=== PATIENT | male | born 2005 | race Caucasian/White ===

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

== ENCOUNTER 2023-07-08 15:02 | Outpatient (AMB) | payer OTHER, SELFPAY ==
[2023-07-08 15:07] VITALS: BP 112/68; PULSE 89; O2SAT 97; BMI 36.8
--- NOTE | 2023-07-08 15:07 | A.OFFPC_ITS ---
Vital Signs 07/08/23 15:07 Height 5 ft 8 in Weight 242 lb BMI 36.8 BP 112/68 Blood Pressure Location Rt brachial Position Sitting Pulse 89 Pulse Source Pulse Oximeter Pulse Oximetry (%) 97 Oxygen Delivery Method Room Air Intake Visit Reasons: PE Intake Note: Pt is here today for his PE Allergies No Known Allergies Allergy (Verified 07/08/23 15:34) Medication List - Last Reconciled 07/08/23 by SUSHANT Truong fluticasone propionate 50 mcg/actuation 1 spray intranasal DAILY Tobacco use date assessed: 07/08/23 Dental Screening Dental Screen Date: 07/08/23 Did you have a dental visit in the last 12 months?: Yes Did you have a dental problem in the last 6 months where you did not have access to dental care?: No Was dental information given to patient?: Patient has dentist HPI HPI Comments History of Present Illness Details Patient is a 18-year-old male in today for physical exam. Patient due for Tdap next year 2024. Patient has a past medical history significant for: Autism, and seasonal allergies. Will draw fasting labs [facility] Medical History Autism Surgical History S/P tonsillectomy Family History Father Hypertension Social History Housing: House Alcohol intake: never Patient Tobacco Use Status: Never used Tobacco e-Cigarette/Vaping Use: Never Used service: No Current occupational status: student Current occupational exposures/hazards: No Cognitive needs: No Hearing needs: No Vision needs: Yes Questionnaire PHQ-9 Over the last 2 weeks, how often have you been bothered by any of the following problems? 1. Little interest or pleasure in doing things: not at all 2. Feeling down, depressed, or hopeless: not at all 3. Trouble falling or staying asleep, or sleeping too much: not at all 4. Feeling tired or having little energy: not at all 5. Poor appetite or overeating: not at all 6. Feeling bad about yourself - or that you are a failure or have let yourself or your family down: not at all 7. Trouble concentrating on things, such as reading the newspaper or watching television: not at all 8. Moving or speaking so slowly that other people could have noticed. Or the opposite - being so fidgety or restless that you have been moving around a lot more than usual: not at all 9. Thoughts that you would be better off or of hurting yourself in some way: not at all Total score: 0 Depression Screening Interpretation: Negative Depression Screening Done: Yes 66458 - PHQ-9 Billing: Yes Source: Developed by Drs. Selvin Minaya, Mee Jade, Pb Rodriguez and colleagues, with an educational ciara from [employer]. Thrive Questionnaire Date Thrive assessed: 07/08/23 I am a: Patient What is your living situation today?: I have a steady place to live Within the past 12 months, did the food you bought not last and you didn't have the money to get more?: Never true Within the past 12 months, did you worry whether your food would run out before you got money to buy more?: Never true Do you have trouble paying for medicines?: No Do you have trouble getting transportation to medical appointments?: No Do you have trouble paying your heating and electricity bill?: No Do you have trouble taking care of your child, family member or friend?: No Do you have trouble with day-to-day activities such as bathing, preparing meals, shopping, managing finances, etc.?: No Are you currently unemployed and looking for a job?: No Are you interested in more education?: No THRIVE Score: 0 AUDIT C Alcohol Use Questionnaire (AUDIT-C) 1. How often do you have a drink containing alcohol?: Never Total Score: 0 FRIDA-7 AMB Questionnaire FRIDA-7 Date FRIDA - 7 assessed: 07/08/23 Feeling nervous, anxious, or on edge: 0 = Not at all Not being able to stop or control worryin = Not at all Worrying too much about different things: 0 = Not at all Trouble relaxin = Not at all Being so restless that it is hard to sit still: 0 = Not at all Becoming easily annoyed or irritable: 0 = Not at all Feeling afraid as if something awful might happen: 0 = Not at all Total FRIDA-7 score (0-4 normal; 5-9 mild; 10-14 moderate; 15-21 severe): 0 Source: Developed by Drs. Selvin Minaya, Mee Jade, Pb Rodriguez and colleagues, with an educational ciara from [employer]. FRIDA-7 Assessment Billing FRIDA-7 Assessment Tool: FRIDA-7 Assessment 43254 Review of Systems Const All systems reviewed & are unremarkable except as noted in HPI and below Physical exam (Primary Care) Vital Signs: Last Vital Signs Pulse 89 07/08/23 15:07 BP 112/68 07/08/23 15:07 Pulse Ox 97 07/08/23 15:07 Oxygen Delivery Method Room Air 07/08/23 15:07 BMI result Body Mass Index 36.8 Tobacco/Smoking Status: Tobacco use Status Tobacco use date assessed 07/08/23 07/08/23 15:10 Patient Tobacco Use Status Never used Tobacco 07/08/23 15:10 e-Cigarette/Vaping Use Never Used 07/08/23 15:10 PHQ-9: PHQ-9 Score PHQ-9: Total score 0 07/08/23 15:12 Depression Screening Interpretation: Negative Thrive Assessment: Date of Thrive Assessment Date Thrive assessed 07/08/23 07/08/23 15:12 Const Other: Appearance: Alert.? Oriented X3.? No acute distress.? Head: Normocephalic, atraumatic. Eyes: Pupils equal, round and reactive to light.? ENT: Pharynx normal.? Neck: Normal inspection.? Neck supple.? CVS: Normal heart rate and rhythm.? Pulses normal.? Respiratory: No respiratory distress.? Breath sounds normal.? Abdomen: Soft and nontender.? Skin: Skin warm and dry.? Normal skin color.? Normal skin turgor.? Extremities: No lower extremity edema. 5/5 strength to bilateral upper and lower extremities Back: No midline tenderness, no C-spine tenderness, full range of motion, no CVA tenderness bilaterally Neuro: Oriented X 3.? No motor deficit.? No sensory deficit. CN 2-12 intact Assessment and Plan Assessment & Plan (1) Physical exam: Comment: Will draw fasting labs Code(s): Z00.00 - Encounter for general adult medical examination without abnormal findings Plan: draw labs Plan follow up PE in 1 year. Orders: Orders Lipid Panel Today Z13.220 - Encounter for screening for lipoid disorders Vitamin B12 Today Z13.21 - Encounter for screening for nutritional disorder Comprehensive Met. Panel Today Z91.89 - Other specified personal risk factors, not elsewhere classified UA CC w/rflx Micro + Cult Today Z13.89 - Encounter for screening for other disorder Vitamin D 25-OH (D2 and D3) Today Z13.21 - Encounter for screening for nutritional disorder Complete Blood Count Auto Diff Today Z13.0 - Encounter for screening for diseases of the blood and blood-forming organs and certain disorders involving the immune mechanism TSH reflex Free T4 Today Z13.29 - Encounter for screening for other suspected endocrine disorder Coding Level of Care Code Est Pt Prev Care 18-39y(80900) Diagnoses Physical exam Z00.00 Additional Codes FRIDA-7 Assessment Billing - FRIDA-7 Assessment Tool: FRIDA-7 Assessment 01550 ([id number]) Time Spent (min) 24
== END 2023-07-08 15:53 | disposition home or self-care (01) ==
PROVIDERS: PCP Nurse Practitioner Family; Visit Provider Nurse Practitioner Primary Care
DX: Z00.00 Encounter for general adult medical examination without abnormal findings (principal)
CPT/HCPCS: 99395

== ENCOUNTER 2024-08-04 08:20 | Outpatient (AMB) | payer OTHER, SELFPAY ==
--- NOTE | 2024-08-04 08:24 | MHC.PC.OV ---
Vital Signs 08/04/24 08:28 Height 5 ft 8 in Weight 274 lb 6 oz BMI 41.7 BP 124/76 Blood Pressure Location Rt brachial Position Sitting Pulse 94 Pulse Source Pulse Oximeter Temp 98.4 F Temp Source Oral Pulse Oximetry (%) 97 Oxygen Delivery Method Room Air Intake Visit Reasons: PE Allergies No Known Allergies Allergy (Verified 08/04/24 08:28) Medication List - Last Reconciled 08/04/24 by BULMARO Tavera No Known Home Meds Tobacco use date assessed: 08/04/24 Dental Screening Dental Screen Date: 08/04/24 Did you have a dental visit in the last 12 months?: Yes Did you have a dental problem in the last 6 months where you did not have access to dental care?: No Was dental information given to patient?: Patient has dentist HPI PE HPI Details History of Present Illness The patient is a 19-year-old male presenting for a wellness visit. He denies experiencing any chest pain, dyspnea, abdominal pain, hematochezia, constipation, diarrhea, or any suicidal or homicidal ideations. The physical examination was benign, and the patient was encouraged to have his laboratory tests done in the near future. He is noted to be obese. Health Maintenance Social History Review of Systems - Cardiovascular: Denies chest pain - Respiratory: Denies dyspnea - Gastrointestinal: Denies abdominal pain, hematochezia, constipation, diarrhea - Psychiatric: Denies suicidal ideation, homicidal ideation Physical Exam General: Patient is obese Orientation: Patient oriented x3 Limitations: No limitations Head: Normal to inspection Ears: Hearing grossly normal bilaterally Nose: Normal external nose present Face and sinus: Normal facial exam Eyes: Appearance normal, both eyes and all related structures Neck: Normal visual inspection and Yes full ROM Respiratory: Normal respiratory effort and able to speak in complete sentences. Clear to auscultation bilaterally Cardiovascular: Regular rate and rhythm. Normal S1 and S2 GI: Normal to inspection. Soft to palpation and nontender : testicles without masses/lesions and no hernias appreciated Skin: No rashes or lesions noted Neuro: Patient oriented x3 Extremities: Normal to inspection Results Plan The patient was advised to undergo laboratory testing in the near future to monitor his health status. Given the patient's obesity, lifestyle modifications including diet and exercise were likely discussed to address weight management. Discussion Notes Patient Instructions - Schedule and complete laboratory tests soon. - Consider lifestyle changes such as a balanced diet and regular exercise to manage weight. PFSH Medical History Autism Surgical History S/P tonsillectomy Family History Father Hypertension Social History Housing: House Alcohol intake: never Patient Tobacco Use Status: Never used Tobacco e-Cigarette/Vaping Use: Never Used service: No Current occupational status: student Current occupational exposures/hazards: No Cognitive needs: No Hearing needs: No Vision needs: Yes Questionnaire PHQ-9 Over the last 2 weeks, how often have you been bothered by any of the following problems? 1. Little interest or pleasure in doing things: not at all 2. Feeling down, depressed, or hopeless: not at all 3. Trouble falling or staying asleep, or sleeping too much: not at all 4. Feeling tired or having little energy: not at all 5. Poor appetite or overeating: not at all 6. Feeling bad about yourself - or that you are a failure or have let yourself or your family down: not at all 7. Trouble concentrating on things, such as reading the newspaper or watching television: not at all 8. Moving or speaking so slowly that other people could have noticed. Or the opposite - being so fidgety or restless that you have been moving around a lot more than usual: not at all 9. Thoughts that you would be better off or of hurting yourself in some way: not at all Total score: 0 Depression Screening Interpretation: Negative Depression Screening Done: Yes 54142 - PHQ-9 Billing: Yes Source: Developed by Drs. Selvin Minaya, Mee Jade, Pb Rodriguez and colleagues, with an educational ciara from [employer]. Thrive Questionnaire Date Thrive assessed: 08/01/24 I am a: Patient What is your living situation today?: I have a steady place to live Within the past 12 months, did the food you bought not last and you didn't have the money to get more?: Never true Within the past 12 months, did you worry whether your food would run out before you got money to buy more?: Never true Do you have trouble paying for medicines?: No Do you have trouble getting transportation to medical appointments?: No Do you have trouble paying your heating and electricity bill?: No Do you have trouble taking care of your child, family member or friend?: No Do you have trouble with day-to-day activities such as bathing, preparing meals, shopping, managing finances, etc.?: No Are you currently unemployed and looking for a job?: Yes Are you interested in more education?: No Please select the resources that you would like help with: None Currently or been in a relationship where the following occur: No concerns reported THRIVE Score: 0 AUDIT C Alcohol Use Questionnaire (AUDIT-C) 1. How often do you have a drink containing alcohol?: Monthly or less 2. How many drinks containing alcohol do you have on a typical day when you are drinking?: 1 or 2 3. How often do you have six or more drinks on one occasion?: Never Total Score: 1 FRIDA-7 AMB Questionnaire FRIDA-7 Date FRIDA - 7 assessed: 08/04/24 Feeling nervous, anxious, or on edge: 1 = Several days Not being able to stop or control worryin = Not at all Worrying too much about different things: 0 = Not at all Trouble relaxin = Not at all Being so restless that it is hard to sit still: 0 = Not at all Becoming easily annoyed or irritable: 0 = Not at all Feeling afraid as if something awful might happen: 0 = Not at all Total FRIDA-7 score (0-4 normal; 5-9 mild; 10-14 moderate; 15-21 severe): 1 Source: Developed by Drs. Selvin Minaya, Mee Jade, Pb Rodriguez and colleagues, with an educational ciara from [employer]. FRIDA-7 Assessment Billing FRIDA-7 Assessment Tool: FRIDA-7 Assessment 95046 Physical exam (Primary Care) Vital Signs: Last Vital Signs Temp 98.4 F 08/04/24 08:28 Pulse 94 08/04/24 08:28 BP 124/76 08/04/24 08:28 Pulse Ox 97 08/04/24 08:28 Oxygen Delivery Method Room Air 08/04/24 08:28 BMI result Body Mass Index 41.7 Tobacco/Smoking Status: Tobacco use Status Tobacco use date assessed 08/04/24 08/04/24 08:29 Patient Tobacco Use Status Never used Tobacco 08/04/24 08:24 e-Cigarette/Vaping Use Never Used 08/04/24 08:24 PHQ-9: PHQ-9 Score PHQ-9: Total score 0 08/04/24 08:29 Depression Screening Interpretation: Negative Thrive Assessment: Date of Thrive Assessment Date Thrive assessed 08/01/24 08/04/24 08:24 Currently or been in a relationship where the following occur: No concerns reported Coding Level of Care Code Est Pt Prev Care 18-39y(94679) Diagnoses Physical exam Z00.00 Additional Codes FRIDA-7 Assessment Billing - FRIDA-7 Assessment Tool: FRIDA-7 Assessment 35106 ([id number]) PHQ-9 - 60101 - PHQ-9 Billing: Yes ([id number]) Assessment & Plan Assessment & Plan (1) Physical exam: Comment: Will draw fasting labs Code(s): Z00.00 - Encounter for general adult medical examination without abnormal findings Category: Medical Plan . Orders: Orders Complete Blood Count Auto Diff Today Z00.00 - Encounter for general adult medical examination without abnormal findings Comprehensive [place]. Panel Fast Today Z00.00 - Encounter for general adult medical examination without abnormal findings TSH reflex Free T4 Today Z00.00 - Encounter for general adult medical examination without abnormal findings UA CC w/rflx Micro + Cult Today Z00.00 - Encounter for general adult medical examination without abnormal findings Lipid Panel Today Z00.00 - Encounter for general adult medical examination without abnormal findings
[2024-08-04 08:28] VITALS: BP 124/76; PULSE 94; TEMP 36.9; O2SAT 97; BMI 41.7
--- OUTSIDE RECORDS SUMMARY | 2024-08-04 08:34 | XMS_ITS | Clinical Summary ---
Author Organization [facility] Address [address] [place] [id number] Phone Care Team Providers Care Assembler [employer] Name Role Phone Unavailable Primary Care Provider Unavailabl e Allergies No known active allergies Medications clotrimazole 1 % creamIndication s:Tinea corporis Apply bid to rash 30 g 1 9 Active Additional Information Patient not taking.Reported on 02/07/2020 Active Problems Problem Noted Date Diagnosed Date Autism spectrum disorder 06/19/2009 Overview (10/21/2019): 09/27 - no ongoing Rx, in special education 10/2019 - no current issues. Assessment & Plan (09/25/2017 1:53 PM EDT): Well managed. Little to no social dysfunction. Resolved Problems Problem Noted Date Diagnosed Date Resolved Date Exercise-induced asthma 08/29/201509/09 Overview (09/25/2017): Has albuterol MDI. Hardly needs to use it. Last use was 2015. (resolved) Immunizations Immunization Administration Dates Next Due DTaP 5 04/29/2007, 5,2003,07/18,2003 HPV Vaccine 9 Valent 08/29/2015,10/23/2014 HPV, Quadrivalent 08/18/2014 Hep A, ped/adol 08/18/2014,05/31/2013 Hep B, ped/adol 01/10/2004,2003,2003 Hib (HbOC) 06/11/2004, 4,2003,06/06 IPV 04/29/2007, 5,2003,05/17 Influenza Split 01/12/2012,12/15/2011 Influenza, injectable, quadr ivalent, preservative free 10/22/2020,10/21/2019,10/19/2015 Influenza, injectable, trivalent 11/15/2007 MMR 06/11/2004 MMRV 04/29/2007 Meningococcal Conj (Menactra) MCV4P 10/21/2019,0 08/18/2014 Pneumococcal Conjugate 03/12/2004,2003, Tdap 08/18/2014 Varicella 03/12/2004 Family History Medical History Relation Name Comments Asthma Brother eleazar No Known Problems Father cm Brain cancer Maternal Grandmother Breast cancer Maternal Grandmother No Known Problems Mother elias Breast cancer Other Obesity Other Ovarian cancer Other Skin cancer Other Diabetes Paternal Grandmother Relation Name Status Comments Brother eleazar Alive Father cm Alive Maternal Grandmother Materna l grandmother: Cancer, breast, Cancer, bone Mother elias Alive Mother: Asthma Other Family history of Diabetes mellitus, Family history of Elevated cholesterol, Family history of Obesity Paternal Grandmother Social History Tobacco Use Types Packs/Day Years Used Date Smoking Tobacco: Never Smokeless Tobacco: Never Comments:Never smoker Hunger/Food Answer Date Recorded In the last 12 months, did y ou or your family ever eat less than you felt you should because there wasn't enough money for food? No 10/22/2020 Stable Housing Answer Date Recorded Are you worried that in the next 2 months you may not have stable housing? No 10/22/2020 Transportation Concerns Answer Date Rec orded In the last 12 months, have you or your family ever had to go without healthcare because you didn't have a way to get there? No 10/22/2020 Hazards in Home Answer Date Recorded Think about the place you li ve. Do you have problems with any of the following? Pests (mice or roaches), mold, no/not working smoke detectors, water leaks, no window guards. No 2020 Financing Utilities Answer Date Recorde d In the last 12 months, has t he electric, gas, oil, or water company threatened to shut off your services in your home? No 10/22/2020 Safety at Home Answer Date Recorded Are you or your family worried about feeling saf e in your home? No 10/22/2020 Outside Support Answer Date Recorded Do you feel that you need mo re support from other people or programs to help you care for yourself or your family? No 10/22/2020 Understanding Health Concerns Answer Da te Recorded Do you need help understandi ng your or your child's healthcare needs (diagnosis, medications, plan, etc.)? No 10/22/2020 Financing Health Concerns Answer Date R ecorded In the last 12 months, was t here a time when your child needed to see a doctor or get medications or supplies but could not because of cost? No 10/22/2020 Missing School or Work Answer Date Zane rded Did you or your child miss s chool or work because of a health problem that could have been avoided? No 10/22/2020 Sex and Gender Information Value Date Recorded Sex Assigned at Male 09/27/2018 2:23 PM EDT Legal Sex Male 5:17 PM EDT Gender Identity Male 09/27/2018 2:23 PM EDT Sexual Orientation Not on file Last Filed Vital Signs Vital Sign Reading Time Taken Comments Blood Pressure 98/63 10/22/2020 9:12 AM EDT Pulse 69 10/22/2020 9:12 AM EDT Temperature 36.4 C (97.6 F) 10/22/2020 9:12 AM EDT Respiratory Rate - - Oxygen Saturation 98% 11/20/2011 12:00 AM EDT Inhaled Oxygen Concentration - - Weight 101 kg (222 lb) 10/22/2020 9:12 AM EDT Height 177.8 cm (5' 10 ) 10/22/2020 9:12 AM EDT Body Mass Index 31.85 10/22/2020 9:12 AM EDT Plan of Treatment Health Maintenance Due Date Last Done Comments Men B Vaccine (1 of 2 - Standard) 2019 Influenza Vaccines (#1) 2023 12/06/19, 10/22/2020, 10/21/2019, Additional history exists COVID-19 Vaccine (2023-2 5 season) 2023 03/27/2021, 06/29/2020, 06/06/2020 DTaP,Tdap,and Td Vaccines (7 - Td or Tdap) 08/18/2024 08/18/2014, 04/29/2007, 09/05/2004, Additional history exists Hepatitis B Vaccines Completed 01/10/2004, 2003, 2003 Pneumococcal Vaccine Completed 03/12/2004, 2003, 2003 HIB Vaccines Completed 06/11/2004, 09/09, 2003, Additional history exists IPV Vaccines Completed 04/29/2007, 08/10, 2003, Additional history exists MMR Vaccines Completed 04/29/2007, 06/11/2004 Varicella Vaccines Completed 04/29/2007, 03/12/2004 Hepatitis A Vaccines Completed 08/18/2014, 06/01/19 14 HPV Vaccines Completed 08/29/2015, 10/10, 08/18/2014 Meningococcal Vaccine Completed 10/21/2019, 015
== END 2024-08-04 09:02 | disposition home or self-care (01) ==
LOC: HO.HMCC 08:21
PROVIDERS: PCP Nurse Practitioner Family; Visit Provider Nurse Practitioner Family
DX: Z00.00 Encounter for general adult medical examination without abnormal findings (principal)

== ENCOUNTER 2024-08-04 08:20 | Outpatient (REF) | payer OTHER, SELFPAY ==
[2024-08-04 13:17] LABS: Basophils Percent Auto 0.4 % (0-2); Eosinophils Absolute Auto 0.1 X10*3/uL (0.0-0.4); Eosinophils Percent Auto 1.6 % (0-4); Hemoglobin 15.9 g/dl (14.0-18.0); Imm Gran Abs Auto 0.03 X10*3/uL (0.00-0.03); Imm Gran Pct Auto 0.4 % (0.0-0.4); Lymphocytes Absolute Auto 2.1 X10*3/uL (1.2-4.9); Lymphocytes Percent Auto 26.5 % (20-40); MANUAL DIFF FLAG NO; Mean Corpuscular HGB Conc 35.3 g/dl (31.0-36.0); Mean Corpuscular Hemoglobin 29.1 pg (27.0-33.0); Mean Corpuscular Volume 82.4 fL (80.0-98.0); Mean Platelet Volume 10.7 fL (9.4-12.4); Monocytes Absolute Auto 0.8 X10*3/uL (0.1-1.2); Monocytes Percent Auto 9.5 % (2-11); Neutrophils Absolute Auto 4.9 x10*3/uL (2.0-8.3); Neutrophils Percent Auto 61.6 % (45-73); Platelet Count 204 X10*3/uL (160-400); Red Blood Count 5.46 X10*6/uL (4.60-5.80); Red Cell Distribution Width 12.5 % (11.0-16.0); White Blood Count 7.9 X10*3/uL (4.8-10.8)
[2024-08-04 13:35] LABS: Appearance Urine Clear; Color Urine Yellow; Glucose Urine UA Negative (Negative); Leukocyte Esterase Urine Negative (Negative); Nitrite Urine Negative (Negative); PH 6.5 (5.0-9.0); Specific Gravity - Urine 1.015 (1.005-1.025); Urine Blood Negative (Negative); Urine Ketones Negative (Negative); Urine Protein Negative (Neg-Trace)
[2024-08-04 13:43] LABS: Alanine Aminotransferase 21 U/L (0-40); Albumin Level 4.7 g/dL (3.5-5.0); Alkaline Phosphatase 57 U/L (39-117); Anion Gap 10 (12-20); Aspartate Amino Transferase 28 U/L (5-37); Blood Urea Nitrogen 14 mg/dL (9-16); Calcium 9.4 mg/dL (8.4-10.2); Carbon Dioxide 26 mmol/L (22-29); Chloride 106 mmol/L (96-108); Cholesterol 141 mg/dL (<200); Estimated Glomerular Filt Rate > 60; Glucose Fasting 90 mg/dL (60-99); HDL Cholesterol 43 mg/dL (>40); LDL Cholesterol Calculated 85 mg/dL (<100); Sodium 138 mmol/L (135-145); Total Protein 7.3 g/dL (6.5-8.0); Triglycerides 65 mg/dL (<150)
[2024-08-04 14:02] LABS: TSH reflex Free T4 1.08 uIU/mL (0.32-4.0)
== END 2024-08-04 08:21 | disposition home or self-care (01) ==
LOC: HO.HMGCLDS 08:20
PROVIDERS: PCP Nurse Practitioner Family; Visit Provider Nurse Practitioner Family
DX: Z00.00 Encounter for general adult medical examination without abnormal findings (principal); Z13.30 Encounter for screening examination for mental health and behavioral disorders, unspecified; Z13.31 Encounter for screening for depression
CPT/HCPCS: 36415; 80053; 80061; 81003; 84443; 85025; 96127